=== PATIENT | female | born 1990 | race Two or more races ===

== ENCOUNTER 2017-09-07 23:57 | Emergency (ER) | payer OTHER ==
[~2017-09-07] VITALS: Ht 165.1 cm; Wt 67.6 kg
[2017-09-08] MEDS ORDERED: PREDNISONE20 MG PO (04:59)
[2017-09-08] MEDS ORDERED: FLONASE ALLERG9.9 ML NASAL (04:59)
== END 2017-09-08 05:12 | disposition home or self-care (01) ==
LOC: ER 23:57
DX: J32.8 Other chronic sinusitis (principal)